=== PATIENT | male | born 1985 | race Caucasian/White ===

== ENCOUNTER 2023-02-24 07:27 | Emergency (ER) | payer SELFPAY ==
[2023-02-24 07:35] VITALS: BP 128/73; PULSE 62; RESP 20; TEMP 98.3; BMI 41.8
[2023-02-24] MEDS ORDERED: LIDOCAINE HCL 2% JELLY 10 ML CARTRIDGE PR ONE (09:33)
[2023-02-24] MEDS ORDERED: LIDOCAINE HCL 2% JELLY 11 ML TP ONE (09:50)
== END 2023-02-24 11:10 | disposition home or self-care (01) ==
LOC: JER 07:27
DX: K64.5 Perianal venous thrombosis (principal); K59.00 Constipation, unspecified; K62.5 Hemorrhage of anus and rectum
CPT/HCPCS: 36415; 82272; 99283-25